=== PATIENT | male | born 1985 | race Caucasian/White ===

== ENCOUNTER 2023-10-11 12:41 | Outpatient (CLI) | payer BC, SELFPAY ==
--- NOTE | ~2023-10-11 | XR_ITS ---
EXAMINATION: XR thoracic spine 3V, XR lumbar spine 2-3V DATE: 10/11/2023 13:10 INDICATION: Chronic mid to low back pain TECHNIQUE: 1. One AP, lateral and lateral swimmer's views of the thoracic spine were obtained. 2. AP, lateral and coned-down lateral lumbosacral views of the lumbar spine were obtained. COMPARISON: None. FINDINGS: Normal alignment in the thoracic and lumbar spine. Chronic appearing anterior wedging with approximat chin 20% anterior vertebral body height loss at T11-L1. Remaining thoracic and lumbar vertebral body h eights are normal. Mild disc height loss at T11-T12. Remaining disc heights are normal. Visualized po rtions of the lungs are clear with no pleural effusion. Heart size is normal. Sacral arches are intac t. Normal bilateral sacralized joints. IMPRESSION: 1. Chronic appearing mild anterior wedging at T11-L1 with mild disc height loss at T11-T12. Reviewed, dictated and finalized at location L. [employer] PHOTOGRAPHER IMPRESSION: 1. Chronic appearing mild anterior wedging at T11-L1 with mild disc height loss at T11-T12.
== END 2023-10-11 12:42 | disposition home or self-care (01) ==
PROVIDERS: PCP Family Medicine; Visit Provider Family Medicine
DX: M54.6 Pain in thoracic spine (principal); M54.50 Low back pain, unspecified
CPT/HCPCS: 72072; 72100